=== PATIENT | male | born 1990 | race Caucasian/White ===

== ENCOUNTER 2017-01-08 22:27 | Emergency (ER) | payer BC ==
[~2017-01-08] VITALS: Ht 162.6 cm; Wt 72.6 kg
[2017-01-08 22:34] VITALS: BP 132/71
--- NOTE | 2017-01-08 23:49 | NUR ---
Pt has had diarrhea for almost 2 weeks after a trip. Pt denies dizziness, n/v, CP, SOB, no other complaints, no distress noted.
== END 2017-01-08 23:48 | disposition home or self-care (01) ==
LOC: ER 22:36
DX: R19.7 Diarrhea, unspecified (principal)
CPT/HCPCS: 99284; A4606; Z7610

== ENCOUNTER 2017-01-31 17:54 | Emergency (ER) | payer BC, OTHER ==
[~2017-01-31] VITALS: Ht 165.1 cm; Wt 72.6 kg
[2017-01-31 17:55] VITALS: BP 144/86
[2017-01-31] MEDS ORDERED: ONDANSETRON 4 MG TAB.RAPDIS ONE (18:25)
[2017-01-31] MEDS ORDERED: ONDANSETRON 4 MG TAB.RAPDIS SL ONE (18:30)
== END 2017-01-31 18:30 | disposition home or self-care (01) ==
LOC: ER 17:56
DX: J06.9 Acute upper respiratory infection, unspecified (principal); R11.2 Nausea with vomiting, unspecified; F10.10 Alcohol abuse, uncomplicated
CPT/HCPCS: A4606; Q0162; Z7610